=== PATIENT | male | born 1985 | race Two or more races ===

== ENCOUNTER 2017-04-01 20:42 | Inpatient (IN) | payer OTHER ==
[~2017-04-01] VITALS: Ht 177.8 cm; Wt 99.8 kg
[2017-04-01] MEDS ORDERED: SODIUM CHLORIDE 0.9% 1,000 ML IV ONE (21:08)
[2017-04-01] MEDS ORDERED: DILTIAZEM HCL 25 MG/5 ML VIAL IV ONE (21:15)
[2017-04-01] MEDS ORDERED: ASPirin 81 mg TAB PO ONE (21:15)
[2017-04-01 21:31] LABS: Basophils # (auto) 0.1 uL; Basophils % (auto) 0.6 % (0.0-2.0); Eosinophils # (auto) 0.1 uL; Eosinophils % (auto) 0.8 % (0.0-7.0); Hematocrit 49.7 % (41.0-53.0); Hemoglobin 17.2 g/dL (13.5-17.5); Lymphocytes # (auto) 3.2 uL; Lymphocytes % (auto) 33.6 % (10.0-50.0); Mean Corpuscular Hemoglobin 31.4 pg (28.0-32.0); Mean Corpuscular Hgb Conc. 34.5 g/dL (32.0-36.0); Monocytes # (auto) 0.6 uL; Monocytes % (auto) 6.8 % (0.0-12.0); Neutrophils # (auto) 5.5 uL; Neutrophils % (auto) 58.2 % (37.0-80.0); Nucleated Red Blood Cells % 0.8 %; Platelet Count (auto) 231 10^3/uL (140-450); Red Blood Cells 5.46 10^6/uL (4.5-5.90); Red Cell Distribution Width 12.6 % (11.8-14.3); White Blood Cell 9.4 10^3/uL (4.4-10.8)
[2017-04-01 21:47] LABS: BUN/Creatinine Ratio 7.9; Bilirubin, Total 0.6 mg/dL (0.2-1.0); Calcium 8.6 mg/dL (8.5-10.1); Potassium 3.3 mmol/L (3.5-5.1)
[2017-04-01 21:48] LABS: Albumin 4.5 g/dL (3.4-5.0); Total Protein 8.3 g/dL (6.4-8.2)
[2017-04-01 21:49] LABS: Magnesium 2.3 mg/dL (1.6-2.6)
[2017-04-01 22:04] LABS: INR 1.03 (0.9-1.15); Partial Thromboplastin Time 30.1 sec (22.64-33.71); Prothrombin Time 11.2 sec (9.37-12.3)
[2017-04-01] MEDS ORDERED: DILTIAZEM 125mg/125ml BAG KIT 125 ML IV ONE (22:45)
[2017-04-02 00:29] LABS: Urine WBC None Seen /hpf (0 - 3)
[2017-04-02 00:38] LABS: Urine Bacteria NONE SEEN /hpf (None Seen); Urine Blood Negative /uL (Negative); Urine Specific Gravity 1.002 (1.001-1.035)
[2017-04-02 00:54] LABS: Alcohol, Urine < 3.0 mg/dL (0-5); Amphetamine Screen, Urine NEGATIVE (NEGATIVE); Barbiturate Scree,Urine NEGATIVE (NEGATIVE); Benzodiazephine Screen, Urine NEGATIVE (NEGATIVE); Cannabinoid Screen, Urine NEGATIVE (NEGATIVE); Cocaine Screen, Urine NEGATIVE (NEGATIVE); Opiate Scree,Urine NEGATIVE (NEGATIVE); Phencyclidine Screen, Urine NEGATIVE (NEGATIVE)
[2017-04-02] MEDS ORDERED: DILTIAZEM 125mg/125ml BAG KIT 100 ML IV SCH (02:29)
[2017-04-02] MEDS ORDERED: HYDROcodone-ACET 5/325MG TAB PO PRN (02:30)
[2017-04-02] MEDS ORDERED: NITROGLYCERIN 0.4 MG SL TAB SL PRN (02:30)
[2017-04-02] MEDS ORDERED: ONDANSETRON HCL 4 MG/2 ML VIAL IV PRN (02:30)
[2017-04-02] MEDS ORDERED: ENOXAPARIN SOD 40 MG/0.4 ML SYRINGE SC ONE (02:30)
[2017-04-02] MEDS ORDERED: MORPHINE SULF INJ 2 MG/ML SYRINGE 1ML IV PRN (02:30)
[2017-04-02] MEDS ORDERED: ACETAMINOPHEN 325 MG TAB PO PRN (02:30)
[2017-04-02] MEDS ORDERED: TEMAZEPAM 15 MG CAP PO PRN (02:30)
[2017-04-02] MEDS ORDERED: POTASSIUM CHL 20 Meq TABLET PO ONE ×2 (03:00→09:45)
[2017-04-02] MEDS ORDERED: FAMOTIDINE 20 MG TAB PO SCH (10:00)
[2017-04-02] MEDS ORDERED: ASPirin 81 mg TAB PO SCH (10:00)
[2017-04-02] MEDS ORDERED: ENOXAPARIN SOD 40 MG/0.4 ML SYRINGE SC SCH (10:00)
[2017-04-02] MEDS ORDERED: APIXABAN 5 MG TAB PO SCH (10:00)
[2017-04-02] MEDS ORDERED: DILTIAZEM HCL 120MG ER CAP PO SCH (10:00)
[2017-04-02 15:27] VITALS: BP 140/80
[2017-04-02 15:31] VITALS: BP 140/80
== END 2017-04-02 16:05 | disposition home or self-care (01) | DRG 310 ==
LOC: EDBD 20:42 → ER 20:42 → TELE 20:43
PROVIDERS: ADMIT Nurse Practitioner; ATTEND Internal Medicine
DX: I48.0 Paroxysmal atrial fibrillation (principal); F17.210 Nicotine dependence, cigarettes, uncomplicated; M19.90 Unspecified osteoarthritis, unspecified site; R07.89 Other chest pain
CPT/HCPCS: 36415; 71045; 80053; 80307; 81001; 83735; 84443; 84484; 85025; 85610; 85730; 93005; 93306; 94761; 96361; 96365; 96375